=== PATIENT | male | born 1975 ===

== ENCOUNTER 2020-09-04 09:05 | Emergency (ER) | payer OTHER ==
[~2020-09-04] VITALS: Ht 157.5 cm; Wt 65.8 kg
[2020-09-04] MEDS ORDERED: TAMSULOSIN HCL0.4 MG PO (09:23)
[2020-09-04] MEDS ORDERED: CLOMIPHENE CITR50 MG PO (09:23)
[2020-09-04] MEDS ORDERED: METOCLOPRAMIDE10 MG PO (13:48)
[2020-09-04] MEDS ORDERED: MOTION RELIEF25 MG PO (13:48)
== END 2020-09-04 14:13 ==
LOC: ER 09:05
DX: H81.13 Benign paroxysmal vertigo, bilateral (principal); E86.0 Dehydration; K29.60 Other gastritis without bleeding; Z20.822 Contact with and (suspected) exposure to COVID-19